=== PATIENT | female | born 1990 | race African-American/Black ===

== ENCOUNTER 2024-12-21 10:14 | Emergency (ER) | payer MEDICAID ==
[~2024-12-21] VITALS: Ht 162.6 cm; Wt 100.0 kg
[2024-12-21 10:27] VITALS: O2SAT 100
[2024-12-21 10:49] LABS: BASOPHILS % 0.5 % (0.0-2.0); DIFFERENTIAL COMMENT 0; EOSINOPHILS % 0.1 % (0.0-5.0); HEMATOCRIT. 49.6 % (36.0-48.0); HEMOGLOBIN. 16.4 g/dL (12.0-16.0); LYMPHOCYTES % 16.9 % (20.0-50.0); MEAN CORPUSCULAR HEMOGLOBIN 29.7 pg (28.0-32.0); MEAN CORPUSCULAR HGB CONC 33.1 g/dL (31.0-37.0); MEAN CORPUSCULAR VOLUME 89.8 fL (81.0-99.0); MEAN PLATELET VOLUME 11.3 fl (7.4-10.4); MONOCYTES % 7.9 % (2.0-8.0); NEUTROPHILS % 74.6 % (40.0-76.0); PLATELET 252 x1000/uL (130-400); RED BLOOD CELL COUNT 5.52 mill/uL (4.2-5.4); RED CELL DISTRIBUTION WIDTH 13.3 % (11.6-14.6); WHITE BLOOD COUNT 8.2 x1000/uL (4.5-11.0)
[2024-12-21 10:54] LABS: CLARITY URINE TURBID (CLEAR); COLOR URINE ORANGE (YELLOW); GLUCOSE URINE NEGATIVE (NEGATIVE); KETONES URINE 1+ (NEGATIVE); LEUKOCYTE ESTERASE URINE 2+ (NEGATIVE); NITRITE URINE NEGATIVE (NEGATIVE); OCCULT BLOOD URINE TRACE (NEGATIVE); PH URINE 6.5 (4.5-8.0); PROTEIN URINE 1+ (NEGATIVE); SPECIFIC GRAVITY URINE 1.035 (1.005-1.030)
[2024-12-21 10:56] LABS: UCG SCREEN NEGATIVE
[2024-12-21 10:56] LABS: CHLORIDE 97 mEq/L (98-107); SODIUM 139 mEq/L (136-145)
[2024-12-21 10:57] LABS: CALCIUM 9.8 mg/dL (8.7-10.4); CARBON DIOXIDE 31 mEq/L (21-32)
[2024-12-21 10:57] LABS: UCG KIT EXPIRATION DATE 11/27/2026
[2024-12-21 11:02] LABS: CREATININE 1.1 mg/dL (0.6-1.0); GLUCOSE 107 mg/dL (70-105); UREA NITROGEN BLOOD 15 mg/dL (9-23)
[2024-12-21 11:04] LABS: ALANINE AMINOTRANSFERASE 12 IU/L (10-49); ASPARTATE AMINOTRANSFERASE 13 IU/L (<34); BILIRUBIN DIRECT 0.4 mg/dL (<=3.0); BILIRUBIN TOTAL 1.8 mg/dL (0.1-1.0); PROTEIN TOTAL 8.1 g/dL (6.0-8.3)
[2024-12-21 11:07] LABS: POTASSIUM 2.8 mEq/L (3.5-5.1)
[2024-12-21 11:21] LABS: BACTERIA URINE 4+; RBC URINE 0-2 /hpf (0-2); SQUAMOUS EPITHELIAL CELL URINE 3+ /lpf (RARE/1+); YEAST URINE NONE SEEN
[2024-12-21 11:23] LABS: TRICHOMONAS URINE 1+
[2024-12-21] MEDS: SODIUM CHLORIDE 0.9% 1,000 ML IV ONE (11:53)
[2024-12-21] MEDS ORDERED: ONDA4TAB50 MT (11:54)
[2024-12-21] MEDS: POTASSIUM CHLORIDE 20MEQ TABLET SR PO SCH (12:45)
[2024-12-21] MEDS: ONDANSETRON HCL 4MG/2ML INJ IV ONE (12:46)
[2024-12-21 12:57] VITALS: BP 135/90; PULSE 55; RESP 13; TEMP 36.7; O2SAT 100
== END 2024-12-21 13:11 | disposition home or self-care (01) ==
LOC: ER 10:34
DX: K31.84 Gastroparesis (principal); R11.2 Nausea with vomiting, unspecified; E87.6 Hypokalemia; I10 Essential (primary) hypertension
CPT/HCPCS: 80076; 80048; 81003; 81025; 83690; 85025; 36415; 96374; 99283; J2405; J7030; Z7610 ×2; A4606